=== PATIENT | male | born 1985 | race Caucasian/White ===

== ENCOUNTER 2017-10-01 16:15 | Emergency (ER) | payer BC ==
[2017-10-01 16:27] VITALS: BP 106/84; PULSE 80; RESP 17; TEMP 98.2; O2SAT 100
--- NOTE | 2017-10-01 17:01 | ED PDOC ---
HPI: General Adult Time Seen by Provider: 10/01/17 16:56 Chief Complaint (Nursing): Abnormal Skin Integrity Chief Complaint (Provider): facial laceration History Per: Patient History/Exam Limitations: no limitations Onset/Duration Of Symptoms: Hrs (x 1) Current Symptoms Are (Timing): Still Present Additional Complaint(s): Melissa is a 31 year old male who presents to the emergency department with laceration to left eyebrow. Patient states he was assembling furniture today (16 :00) where he hit his left eyebrow with glass frame. Denies loss of consciousness or FB sensation to wound. No active bleeding upon arrival. Patient is not sure of last tetanus booster. PMD: [facility] Past Medical History Reviewed: Historical Data, Nursing Documentation, Vital Signs Vital Signs: Last Vital Signs Temp 98.2 F 10/01/17 16:24 Pulse 80 10/01/17 16:24 Resp 17 10/01/17 16:24 BP 106/84 10/01/17 16:24 Pulse Ox 100 10/01/17 17:51 - Medical History PMH: No Chronic Diseases - Surgical History Surgical History: No Surg Hx - Family History Family History: States: No Known Family Hx - Living Arrangements Living Arrangements: With Family - Social History Current smoker - smoking cessation education provided: No Alcohol: None Drugs: Denies - Immunization History Hx Tetanus Toxoid Vaccination: No (not sure of last booster) Hx Influenza Vaccination: No Hx Pneumococcal Vaccination: No - Allergies Allergies/Adverse Reactions: Allergies Allergy/AdvReac Type Severity Reaction Status Date / Time No Known Allergies Allergy Verified 10/01/17 16:24 Review of Systems ROS Statement: Except As Marked, All Systems Reviewed And Found Negative Skin: Positive for: Other (left eyebrow laceration) Neurological: Positive for: Other (no LOC) Physical Exam - Reviewed Nursing Documentation Reviewed: Yes Vital Signs Reviewed: Yes - Physical Exam Appears: Positive for: Well, Non-toxic Head Exam: Negative for: ATRAUMATIC ((+): 2 cm laceration noted to left eyebrow laterally with minimum active bleeding and mild STS) Skin: Positive for: Normal Color. Negative for: Rash Eye Exam: Positive for: Normal appearance, EOMI, PERRL Respiratory: Negative for: Respiratory Distress Neurologic/Psych: Positive for: Alert, Oriented (x 3), Gait (steady) - ECG O2 Sat by Pulse Oximetry: 100 (RA) Pulse Ox Interpretation: Normal Medical Decision Making Medical Decision Making: Time: 16:56 Impression: 31 y/o with left eyebrow laceration Plan: - Laceration Repair - tetanus booster Patient was given detailed wound care instructions. Upon provider evaluation patient is medically stable, and requires no further treatment in the ED at this time. Patient will be discharged. Counseling was provided and all questions were answered regarding diagnosis. There is agreement to discharge plan. Return if symptoms persist or worsen. Scribe Attestation: Documented by Gerard Trimble, acting as a scribe for Lyly Frausto PA-C Provider Scribe Attestation: All medical record entries made by the Scribe were at my direction and personally dictated by me. I have reviewed the chart and agree that the record accurately reflects my personal performance of the history, physical exam, medical decision making, and the department course for this patient. I have also personally directed, reviewed, and agree with the discharge instructions and disposition. Disposition - Clinical Impression Clinical Impression: Eyebrow laceration, Requires a booster tetanus - Patient ED Disposition Is Patient to be Admitted: No Counseled Patient/Family Regarding: Diagnosis, Need For Followup - Disposition [facility]errals: [facility] [Outside] Disposition: Routine/Home Disposition Time: 17:52 Condition: STABLE Additional Instructions: Keep area clean and dry. Ice affected area to reduce swelling and bruising. Over the counter advil or tylenol for pain as needed. Sutures are absorbable and will dissolve on their own. Follow up as needed with primary care doctor. Instructions: Care For Your Absorbable Stitches (ED), Facial Laceration (ED), Diphtheria/Acellular Pertussis/Tetanus Booster Vaccine (Tdap) (Injection) Forms: [employer] (Romanian) Procedure: Wound Repair - Time Performed Time Performed: 17:34 - Time Out Time Out: Side verified, Site verified, Patient ID confirmed, Sterile procedures obs. - Procedure Procedure: Wound Repair: left eyebrow laceration - Consent Obtained Consent obtained: Verbal - Performed by Performed by: Mid-level Provider - Indications Indication(s):: Laceration - Location Location:: Left, Eyebrow Shape:: Linear Dimensions Length cm: 2 Depth:: Epidermis - Anesthetic Technique Anesthetic Technique: Local Local/Regional Anesthetic:: Lidocaine 1% w/epi - Debris Debris:: None - Irrigated Irrigated with ml of normal saline: 10 - Complexity Complexity:: Simple (one layer) - Wound repair method Sutures:: # (5-0), Type (Chromic Sutures), Technique (interrupted) - Muscle repiar layer closed with Muscle repair layer closed with:: Wound well approximated, Abx ointment applied , Tetanus ordered - Complications Complications: none - Patient tolerated procedure Patient Tolerated Procedure:: Well
== END 2017-10-01 18:02 | disposition home or self-care (01) ==
LOC: H.ER 16:15
DX: S01.81XA Laceration without foreign body of other part of head, initial encounter (principal); W22.8XXA Striking against or struck by other objects, initial encounter; Y92.89 Other specified places as the place of occurrence of the external cause